=== PATIENT | male | born 1970 | race Two or more races ===

== ENCOUNTER 2024-12-02 09:50 | Day surgery (SDC) | payer OTHER ==
[2024-11-19 08:47] LABS: HEMATOCRIT 43.9 % (39.0-48.0); HEMOGLOBIN 15.2 g/dL (13-16.00); MEAN CELL VOLUME 87.5 fL (80.0-100.00); MEAN CORPUSCULAR HEMOGLOBIN 30.4 pg (27.00-32.0); MEAN CORPUSCULAR HGB CONC 34.7 g/dl (32.0-36.0); PLATELET COUNT 358 K/uL (150-450); RED BLOOD COUNT 5.01 M/uL (4.00-6.00); RED CELL DISTRIBUTION WIDTH 12.7 % (11.5-14.5)
[2024-11-19 08:52] LABS: URINE APPEARANCE Clear; URINE BILIRRUBIN Negative (NEGATIVE); URINE BLOOD Negative; URINE COLOR Yellow; URINE GLUCOSE Negative (NEGATIVE); URINE KETONE Negative (NEGATIVE); URINE LEUKOCYTE Small; URINE NITRATE Negative; URINE PROTEIN Negative (NEGATIVE); URINE UROBILINOGEN 0.2 E.U./dl
[2024-11-19 08:56] LABS: URINE BACTERIA 24.4 uL (0.0-1933); URINE EPITHELIAL CELLS 2.5 uL (0.0-38.8); URINE WBC 68.6 uL (0.0-23.2)
[2024-11-19 09:11] LABS: PARTIAL THROMBOPLASTIN TIME 30.5 SECONDS (22.0-34.0); PROTHROMBIN TIME 10.9 SECONDS (9.0-11.5)
[2024-11-19 09:25] VITALS: BP 152/91
[2024-11-19 09:28] LABS: ALBUMIN 3.8 gm/dL (3.4-5.0); BILIRUBIN TOTAL 0.51 mg/dL (0.3-1.2); CALCIUM 9.8 mg/dL (8.5-10.1); CREATININE SERUM 1.11 mg/dL (0.70-1.30); GFR 68.78; POTASSIUM 4.62 mEq/L (3.5-5.1); TOTAL PROTEIN 7.8 gm/dL (6.4-8.2)
[~2024-12-02] VITALS: Ht 188 cm; Wt 102.1 kg
[2024-12-02] MEDS ORDERED: CEFAZOLIN SODIUM 1,000 MG VIAL ONE (11:48)
[2024-12-02] MEDS ORDERED: BUPIVACAINE HCL/MPF 0.5% 30ML VIAL ONE (12:34)
[2024-12-02] MEDS ORDERED: KETOROLAC TROMETHAMINE 30 MG VIAL ONE (12:34)
[2024-12-02] MEDS ORDERED: LIDOCAINE HCL 1%/EPINEPHRINE 20ML VIAL IJ ONE (12:35)
[2024-12-02] MEDS ORDERED: MORPHINE SULFATE 4 MG/ML VIAL IV ONE (15:35)
[2024-12-02 22:12] VITALS: BP 115/72; O2SAT 100
== END 2024-12-02 17:15 | disposition home or self-care (01) ==
LOC: CIR.AMB 09:50
PROVIDERS: ATTEND Orthopaedic Surgery
DX: M75.121 Complete rotator cuff tear or rupture of right shoulder, not specified as traumatic (principal); M75.21 Bicipital tendinitis, right shoulder; M24.111 Other articular cartilage disorders, right shoulder